=== PATIENT | female | born 1970 ===

== ENCOUNTER 2019-11-08 05:28 | Day surgery (SDC) | payer OTHER ==
[~2019-11-08 05:28] MED LIST: NEURONTIN800 MG PO
== END 2019-11-08 19:00 | disposition home or self-care (01) ==
LOC: CIR.AMB 05:28 → ADM 11:15 → CIR.AMB 19:00
PROVIDERS: ATTEND Orthopaedic Surgery Hand Surgery
DX: G56.01 Carpal tunnel syndrome, right upper limb (principal); M77.11 Lateral epicondylitis, right elbow; Z20.828 Contact with and (suspected) exposure to other viral communicable diseases